=== PATIENT | female | born 2005 | race Caucasian/White ===

== ENCOUNTER 2023-07-21 01:32 | Emergency (ER) | payer BC ==
[~2023-07-21] VITALS: Ht 160 cm; Wt 54.5 kg
[2023-07-21 01:38] VITALS: BP 114/74; TEMP 98.3
[2023-07-21] MEDS ORDERED: Home Ondansetron ODT 4 MG #2 ODT/PACK PO ONE (02:15)
[2023-07-21] MEDS ORDERED: dexAMETHasone 10 MG/ML VIAL PO ONE (02:15)
[2023-07-21 02:49] VITALS: PULSE 64
== END 2023-07-21 02:49 | disposition home or self-care (01) ==
LOC: COL.ER 01:32
DX: J02.9 Acute pharyngitis, unspecified (principal); R11.2 Nausea with vomiting, unspecified
CPT/HCPCS: J1100